=== PATIENT | male | born 1955 | race Caucasian/White ===

== ENCOUNTER 2024-12-28 13:33 | Outpatient (NON) | payer MEDICARE, SELFPAY ==
[2024-12-28 14:11] LABS: Anion Gap 7 mmol/L (4-12); Basophils Absolute Auto 0.04 K/mm3 (0.00-0.10); Basophils Percent Auto 0.5 % (0.0-1.0); Blood Urea Nitrogen 24 mg/dL (9-20); Calcium 9.1 mg/dL (8.4-10.2); Carbon Dioxide 25 mmol/L (22-30); Chloride 104 mmol/L (98-107); Eosinophils Absolute Auto 0.24 K/mm3 (0.02-0.50); Eosinophils Percent Auto 2.9 % (1.0-6.0); Estimated Glomerular Filt Rate 60; Glucose 174 mg/dL (65-110); Hematocrit 35.3 % (37.0-46.0); Hemoglobin 11.7 g/dL (12.4-15.3); Immature Granulocyte Absolute 0.05 K/mm3 (0.00-0.00); Immature Granulocyte Percent A 0.6 % (0.0-0.0); Lymphocytes Absolute Auto 1.15 K/mm3 (1.10-4.50); Mean Corpuscular HGB Conc 33.1 g/dL (32-36); Mean Corpuscular Hemoglobin 27.7 pg (27.0-31.0); Mean Corpuscular Volume 83.5 fL (78.0-102.0); Mean Platelet Volume 8.9 fl (8.7-11.0); Monocytes Absolute Auto 0.76 K/mm3 (0.10-0.90); Monocytes Percent Auto 9.3 % (2.0-11.0); Neutrophils Absolute Auto 5.97 K/mm3 (1.70-7.20); Neutrophils Percent Auto 72.7 % (50.0-70.0); Osmolality Calculated 290 mOsm/kg (285-295); Platelet Count Result 578 K/mm3 (150-420); Potassium 5.2 mmol/L (3.4-5.0); Red Blood Count 4.23 M/mm3 (4.70-6.10); Red Cell Distribution Width 12.7 % (11.6-14.4); Sodium 136 mmol/L (137-145); White Blood Count 8.2 K/mm3 (4.8-10.8)
--- OUTSIDE RECORDS SUMMARY | 2024-12-28 14:17 | XMS_ITS | Clinical Summary ---
Author Organization Unknown Care Team Providers Care Industrial Furnace Fabricator Name Role Phone TAMIR SHARP, FREDI Unavailable Unavailable CARLOS GARCIA, BRIAN Unavailable Unavailable Payers Payer Name Policy Type Policy Number Effective Date Expira tion Date MEDICARE - [place] - PDGM [id number] Problems Condition Name Condition Details Condition Category Status Onset Date Resolution Date Last Treatment Date Treating Clinician Comments OTHER ACUTE OSTEOMYELIT IS, RIGHT ANKLE AND FOOT Active 12-19 00:00: 00 Allergies, Adverse Reactions, Alerts Allergy Name Allergy Type Status Severity Reaction(s) Onset Date Inactive Date Treating Clinician Comments VANCOMYCIN Propensity to adverse reactions Active 12-25 15:46: 09 Immunizations Ordered Immunization Name Filled Immunization Name Date Status Comments Refusal Reason REFUSED FLU, PPV 2024-12-25 00:00:00 Vital Signs Vital Name Observation Time Observation Value Commen ts Temperature 2024-12-25 18:35:00.000 98 [degF] BMI (%) 2024-12-25 15:54:36.000 34 kg/m2 Height 2024-12-25 15:54:26.000 70 [in_us] Pulse 2024-12-25 18:35:00.000 89 /min O2 Saturation (%) 2024-12-25 18:35:00.000 97 % Respirations 2024-12-25 18:35:00.000 18 /min Weight (lbs) 2024-12-25 15:54:36.000 238 [lb_av] Systolic Blood Pressure 2024-12-25 18:35:00.000 148 mm [Hg] Diastolic Blood Pressure 2024-12-25 18:35:00.000 62 mm [Hg] Plan of Treatment Planned Activity Planned Date Details Comments Future Scheduled Test SKILLED NU RSE TO EVALUATE PATIENT, IDENTIFY PRIMARY AND CO-MORBID CONDITIONS CODED PER CODING GUIDELINES, AND DEVELOP PATIENT SPECIFIC PLAN OF CARE THAT INCLUDES PATIENT GOAL FOR HOME HEALTH. [code = SKILLED NURSE TO EVALUATE PATIENT, IDENTIFY PRIMARY AND CO-MORBID CONDITIONS CODED PER CODING GUIDELINES, AND DEVELOP PATIENT SPECIFIC PLAN OF CARE THAT INCLUDES PATIENT GOAL FOR HOME HEALTH.] Future Scheduled Test SKILLED NU RSE TO REVIEW PATIENT MEDICATIONS (PRESCRIPTION/OTC). INSTRUCT PATIENT/CAREGIVER ON ALL MEDICATIONS INCLUDING PURPOSE, WHEN TO TAKE, IMPORTANCE OF MEDICATION ADHERENCE, MONITORING OF EFFECTIVENESS, ADVERSE DRUG REACTIONS, POSSIBLE SIDE EFFECTS, AND WHEN TO NOTIFY AGENCY OR PHYSICIAN/PROVIDER OF ANY CONCERNS. [code = SKILLED NURSE TO REVIEW PATIENT MEDICATIONS (PRESCRIPTION/OTC). INSTRUCT PATIENT/CAREGIVER ON ALL MEDICATIONS INCLUDING PURPOSE, WHEN TO TAKE, IMPORTANCE OF MEDICATION ADHERENCE, MONITORING OF EFFECTIVENESS, ADVERSE DRUG REACTIONS, POSSIBLE SIDE EFFECTS, AND WHEN TO NOTIFY AGENCY OR PHYSICIAN/PROVIDER OF ANY CONCERNS.] Future Scheduled Test PATIENT WASHBURN S A RISK OF HOSPITALIZATION AND ED USE. SKILLED NURSE TO ESTABLISH SUPPORT MEASURES TO MINIMIZE RISK OF HOSPITALIZATION AND ED USE, AND INSTRUCT PATIENT/CAREGIVER ON METHODS TO REDUCE AVOIDABLE HOSPITALIZATION AND ED USE. [code = PATIENT HAS A RISK OF HOSPITALIZATION AND ED USE. SKILLED NURSE TO ESTABLISH SUPPORT MEASURES TO MINIMIZE RISK OF HOSPITALIZATION AND ED USE, AND INSTRUCT PATIENT/CAREGIVER ON METHODS TO REDUCE AVOIDABLE HOSPITALIZATION AND ED USE.] Future Scheduled Test SKILLED NU RSE TO PROVIDE INSTRUCTION TO PATIENT/CAREGIVER RELATED TO DISCHARGE PLANNING. [code = SKILLED NURSE TO PROVIDE INSTRUCTION TO PATIENT/CAREGIVER RELATED TO DISCHARGE PLANNING.] Future Scheduled Test SKILLED NU RSE TO PERFORM ENVIRONMENTAL SAFETY RISK ASSESSMENT AND FALL RISK ASSESSMENT AND PROVIDE INSTRUCTION TO IMPLEMENT ENVIRONMENTAL SAFETY AND FALL PREVENTION STRATEGIES THROUGHOUT THE CERTIFICATION PERIOD. SKILLED NURSE WILL MAINTAIN SITUATIONAL AWARENESS AND WILL NOTIFY CLINICAL NETWORK SUPPORT SPECIALIST AND PHYSICIAN/PROVIDER WITH ANY CHANGE IN CONDITION. [code = SKILLED NURSE TO PERFORM ENVIRONMENTAL SAFETY RISK ASSESSMENT AND FALL RISK ASSESSMENT AND PROVIDE INSTRUCTION TO IMPLEMENT ENVIRONMENTAL SAFETY AND FALL PREVENTION STRATEGIES THROUGHOUT THE CERTIFICATION PERIOD. SKILLED NURSE WILL MAINTAIN SITUATIONAL AWARENESS AND WILL NOTIFY CLINICAL NETWORK SUPPORT SPECIALIST AND PHYSICIAN/PROVIDER WITH ANY CHANGE IN CONDITION.] Future Scheduled Test SKILLED NU RSE FOR OBSERVATION AND ASSESSMENT OF PATIENTS PAIN LEVEL AND EFFECTIVENESS OF PAIN MANAGEMENT REGIMEN. SKILLED NURSE TO INSTRUCT PATIENT/CAREGIVER REGARDING PHARMACOLOGIC AND NON-PHARMACOLOGIC PAIN CONTROL MEASURES. SKILLED NURSE TO REPORT TO PHYSICIAN IF PAIN LEVEL IS OUTSIDE OF ESTABLISHED PARAMETERS. [code = SKILLED NURSE FOR OBSERVATION AND ASSESSMENT OF PATIENTS PAIN LEVEL AND EFFECTIVENESS OF PAIN MANAGEMENT REGIMEN. SKILLED NURSE TO INSTRUCT PATIENT/CAREGIVER REGARDING PHARMACOLOGIC AND NON-PHARMACOLOGIC PAIN CONTROL MEASURES. SKILLED NURSE TO REPORT TO PHYSICIAN IF PAIN LEVEL IS OUTSIDE OF ESTABLISHED PARAMETERS.] Future Scheduled Test SKILLED NU RSE TO ASSESS PATIENT'S SKIN INTEGRITY AND INSTRUCT PATIENT/CAREGIVER ON MEASURES TO PREVENT PRESSURE ULCERS. [code = SKILLED NURSE TO ASSESS PATIENT'S SKIN INTEGRITY AND INSTRUCT PATIENT/CAREGIVER ON MEASURES TO PREVENT PRESSURE ULCERS.] Future Scheduled Test SN TO INST RUCT PATIENT/CAREGIVER ON DIABETES MANAGEMENT UTILIZING THE [facility] SPECIALTY PROGRAM. [code = SN TO INSTRUCT PATIENT/CAREGIVER ON DIABETES MANAGEMENT UTILIZING THE [facility] SPECIALTY PROGRAM.] Future Scheduled Test SN TO INST RUCT PATIENT/CAREGIVER ON METHODS TO MANAGE WOUNDS AND MAINTAIN HEALTHY SKIN UTILIZING THE [facility] PRO[facility]. [code = SN TO INSTRUCT PATIENT/CAREGIVER ON METHODS TO MANAGE WOUNDS AND MAINTAIN HEALTHY SKIN UTILIZING THE [facility].] Future Scheduled Test NEED FOR S KILLED TEACHING AND INTERVENTION RELATED TO DIABETIC FOOT WOUNDS TO BOTH LEFT AND RIGHT FOOTAS WELL INCISION ON RIGHT FOOT. SKILLED NURSE OR TRAINED PATIENT/CAREGIVER TO PERFORM WOUND CARE USING ASEPTIC TECHNIQUE TO APPLY BETADINE TO BILATERAL FOOT WOUNDS AND INCISION LINE, AND COVER WITH DRY DRESSING(4 4 OR ABD PAD), WRAP WITH ROLLED GAUZE, THEN APPLY AN ERICH BANDAGE DAILY AND PRN IF SOILED OR DISLODGED. 1-2 PRN SKILLED NURSE VISITS FOR WOUND CARE DUE TO COMPLICATIONS. SKILLED NURSE TO OBTAIN WOUND CULTURE PRN S/S OF INFECTION. WOUND CARE WILL BE PERFORMED BY TRAINED CAREGIVER ON DAYS WHEN SKILLED NURSE IS NOT SCHEDULED FOR A VISIT. DISCONTINUE WOUND CARE/SUPPLIES ONCE WOUND IS HEALED. [code = NEED FOR SKILLED TEACHING AND INTERVENTION RELATED TO DIABETIC FOOT WOUNDS TO BOTH LEFT AND RIGHT FOOTAS WELL INCISION ON RIGHT FOOT. SKILLED NURSE OR TRAINED PATIENT/CAREGIVER TO PERFORM WOUND CARE USING ASEPTIC TECHNIQUE TO APPLY BETADINE TO BILATERAL FOOT WOUNDS AND INCISION LINE, AND COVER WITH DRY DRESSING(4 4 OR ABD PAD), WRAP WITH ROLLED GAUZE, THEN APPLY AN ERICH BANDAGE DAILY AND PRN IF SOILED OR DISLODGED. 1-2 PRN SKILLED NURSE VISITS FOR WOUND CARE DUE TO COMPLICATIONS. SKILLED NURSE TO OBTAIN WOUND CULTURE PRN S/S OF INFECTION. WOUND CARE WILL BE PERFORMED BY TRAINED CAREGIVER ON DAYS WHEN SKILLED NURSE IS NOT SCHEDULED FOR A VISIT. DISCONTINUE WOUND CARE/SUPPLIES ONCE WOUND IS HEALED.] Future Scheduled Test SKILLED NU RSE FOR O/A AND TEACHING OF DIABETIC MANAGEMENT INCLUDING BLOOD SUGAR MONITORING/USE OF GLUCOMETER, DIABETIC DIET, LOWER EXTREMITY SKIN INSPECTION, PROPER SKIN/FOOT CARE, AND SIGNS AND SYMPTOMS HYPO/HYPERGLYCEMIA TO REPORT. [code = SKILLED NURSE FOR O/A AND TEACHING OF DIABETIC MANAGEMENT INCLUDING BLOOD SUGAR MONITORING/USE OF GLUCOMETER, DIABETIC DIET, LOWER EXTREMITY SKIN INSPECTION, PROPER SKIN/FOOT CARE, AND SIGNS AND SYMPTOMS HYPO/HYPERGLYCEMIA TO REPORT.] Future Scheduled Test SKILLED NU RSE TO OBTAIN BLOOD SUGAR PRN FOR SIGNS AND SYMPTOMS OF HYPO/HYPERGLYCEMIA. IF OBTAINED BY PATIENT/CAREGIVER PRIOR TO VISIT AND PATIENT IS NOT SYMPTOMATIC, SKILLED NURSE TO RECORD READING FROM PATIENT LOG. [code = SKILLED NURSE TO OBTAIN BLOOD SUGAR PRN FOR SIGNS AND SYMPTOMS OF HYPO/HYPERGLYCEMIA. IF OBTAINED BY PATIENT/CAREGIVER PRIOR TO VISIT AND PATIENT IS NOT SYMPTOMATIC, SKILLED NURSE TO RECORD READING FROM PATIENT LOG.] Future Scheduled Test SKILLED NU RSE FOR O/A AND TEACHING ON IV SITE CARE, INFUSION PROCEDURE, SIGNS AND SYMPTOMS OF INFECTION/COMPLICATIONS. SKILLED NURSE TO OBTAIN IV ACCESS TO CENTRAL LINE VIA PICC TO LEFT UPPER ARM. SKILLED NURSE OR TRAINED PATIENT/CAREGIVER TO ADMINISTER IV THERAPY OF CEFTRIAXONE, WITH A SASH STYLE FLUSH AND ADMINISTRATION, 2000MG, FOR 40 DOSES, AND DAILY. SKILLED NURSE TO CHANGE DRESSING USING STERILE TECHNIQUE WEEKLY AND PRN FOR SOILED OR LOOSE DRESSING. [code = SKILLED NURSE FOR O/A AND TEACHING ON IV SITE CARE, INFUSION PROCEDURE, SIGNS AND SYMPTOMS OF INFECTION/COMPLICATIONS. SKILLED NURSE TO OBTAIN IV ACCESS TO CENTRAL LINE VIA PICC TO LEFT UPPER ARM. SKILLED NURSE OR TRAINED PATIENT/CAREGIVER TO ADMINISTER IV THERAPY OF CEFTRIAXONE, WITH A SASH STYLE FLUSH AND ADMINISTRATION, 2000MG, FOR 40 DOSES, AND DAILY. SKILLED NURSE TO CHANGE DRESSING USING STERILE TECHNIQUE WEEKLY AND PRN FOR SOILED OR LOOSE DRESSING.] Future Scheduled Test SKILLED NU RSE TO OBTAIN BLOOD SPECIMEN VIA PICC LINE OR VENIPUNCTURE, FOR LABS BMP, ESR, CBC WITH DIFFERENTIAL WEEKLY, OBTAIN LAB RESULTS AND REPORT TO PHYSICIANFREDI AT [phone] [facility] AT [phone]. [code = SKILLED NURSE TO OBTAIN BLOOD SPECIMEN VIA PICC LINE OR VENIPUNCTURE, FOR LABS BMP, ESR, CBC WITH DIFFERENTIAL WEEKLY, OBTAIN LAB RESULTS AND REPORT TO PHYSICIANFREDI AT [phone] [facility] AT [phone].] Future Scheduled Test [facility] MAY ACCEPT ORDERS FROM THE FOLLOWING PHYSICIANS: ANY ON-CALL OR ATTENDING [code = HOME HEALTH AGENCY MAY ACCEPT ORDERS FROM THE FOLLOWING PHYSICIANS: ANY ON-CALL OR ATTENDING] Goal Patient Goal - B EING ABLE TO WEAR NORMAL SHOES Goal Provider Goal - A PLAN OF CARE WILL BE ESTABLISHED THAT MEETS PATIENT'S CARE HOME NEEDS AND INCLUDES PATIENT GOAL FOR HOME HEALTH. Goal Provider Goal - PATIENT/CAREGIVER WILL VERBALIZE UNDERSTANDING OF EDUCATION PROVIDED ON MEDICATIONS BY THE END OF THE CERTIFICATION PERIOD. Goal Provider Goal - PATIENT WILL HAVE SUPPORT MEASURES ESTABLISHED TO PREVENT HOSPITALIZATION AND ED USE AND PATIENT/CAREGIVER WILL VERBALIZE/DEMONSTRATE METHODS TO REDUCE AVOIDABLE HOSPITALIZATION AND ED USE BY END OF EPISODE. Goal Provider Goal - PATIENT/CAREGIVER WILL VERBALIZE UNDERSTANDING OF DISCHARGE PLANNING INSTRUCTIONS BY DATE OF DISCHARGE. Goal Provider Goal - PATIENT/CAREGIVER WILL VERBALIZE/DEMONSTRATE EFFECTIVE ENVIRONMENTAL SAFETY AND FALL PREVENTION STRATEGIES, WILL REMAIN SAFE IN THE COMMUNITY, AND WILL BE FREE OF DANGER TO SELF AND OTHERS THROUGHOUT THE CERTIFICATION PERIOD. Goal Provider Goal - PATIENT/CAREGIVER WILL DEMONSTRATE UNDERSTANDING OF PHARMACOLOGIC AND NONPHARMACOLOGIC PAIN CONTROL MEASURES AND PATIENT WILL HAVE IMPROVEMENT IN PAIN INTERFERING WITH ACTIVITY EVIDENCED BY PAIN AT A LEVEL THAT IS ACCEPTABLE TO THE PATIENT AND PAIN LEVEL WITHIN ESTABLISHED PARAMETERS BY END OF CERTIFICATION PERIOD. Goal Provider Goal - PATIENT/CAREGIVER WILL VERBALIZE UNDERSTANDING OF PRESSURE ULCER PREVENTION BY END OF THE EPISODE. Goal Provider Goal - PATIENT/CAREGIVER WILL DEMONSTRATE MANAGEMENT OF DIABETES A RESULT OF PARTICIPATION IN [facility] PRO[facility]. Goal Provider Goal - PATIENT/CAREGIVER WILL DEMONSTRATE METHODS TO MANAGE WOUNDS AND MAINTAIN HEALTHY SKIN A RESULT OF PARTICIPATION IN [facility]. Goal Provider Goal - WOUND CARE WILL BE COMPLETED AND PATIENT WILL HAVE IMPROVED WOUND STATUS EVIDENCED BY NO SIGNS AND SYMPTOMS OF INFECTION, DECREASED WOUND SIZE, AND/OR NO COMPLICATIONS BY THE END OF THE CERTIFICATION PERIOD. Goal Provider Goal - PATIENT/CAREGIVER WILL VERBALIZE/DEMONSTRATE KNOWLEDGE OF DIABETIC MANAGEMENT. CHANGES IN DIABETIC STATUS WILL BE IDENTIFIED AND REPORTED TO PHYSICIAN FOR PROMPT INTERVENTION THROUGHOUT THE CERTIFICATION PERIOD. Goal Provider Goal - BLOOD SUGAR READING WILL BE OBTAINED ORDERED THROUGHOUT CERTIFICATION PERIOD. Goal Provider Goal - PATIENT WILL VERBALIZE/DEMONSTRATE TOLERANCE TO CENTRAL LINE ACCESS PROCEDURE, IV MEDICATION ADMINISTRATION, AND DRESSING CHANGES ORDERED THROUGH CERTIFICATION PERIOD. Goal Provider Goal - SKILLED NURSE TO PERFORM LAB PROCEDURE AND REPORT RESULTS TO PHYSICIAN. Goal Provider Goal - ADDITIONAL ORDERS WILL BE RECEIVED FROM ALTERNATE PHYSICIAN IN A TIMELY MANNER THROUGHOUT THE CERTIFICATION PERIOD. Progress Notes Progress Notes <paragraph>[Visit Date: 2024 by SARA DARIELA RN]:</paragraph><paragraph>PATIENT IS SEEN TODAY FOR A START OF CARE VISIT, PATIENT IS A 69-YEAR-OLD MALE CLIENT WHO HAD RECENTLY BEEN HOSPITALIZED FOR OTHER ACUTE OSTEOMYELITIS OF THE RIGHT ANKLE AND FOOT EXACERBATION, PAST MEDICAL HISTORIES INCLUDE HYPERTENSION, DIABETES MELLITUS TYPE 2, PULMONARY VASCULAR DISEASE, DYSLIPIDEMIA AND PERIPHERAL NEUROPATHY, RIGHT FOOT CELLULITIS, DIABETIC FOOT WOUNDS. PATIENT IS ALERT AND ORIENTED X3 WITH SOME FORGETFULNESS, WELL-GROOMED PLEASANT AND COOPERATIVE MALE PATIENT THROUGHOUT THE ENTIRE VISIT. PATIENT LIVES ALONE BUT HAS A GOOD SUPPORT SYSTEM WITH THE HELP OF HIS CHILDREN FOR HIS HAD RECENTLY . AT TODAY'S VISIT WE REVIEWED THE RONAN COHEN BUCKLING, PATIENT'S RIGHTS AND RESPONSIBILITIES, CALL US FIRST, PATIENT SATISFACTION, EMERGENCY PREPAREDNESS ACTION PLANS AND PATIENT INSTRUCTION. ALL CONSENTS WERE SIGNED BY PATIENT. VITAL SIGNS WERE OBTAINED AND WITHIN NORMAL LIMITS, HEART RATE AND RHYTHM WITHIN NORMAL LIMITS, PATIENT DENIES ANY CHEST PAIN, HEART PALPITATIONS OR DIZZINESS AT THIS VISIT. BILATERAL LUNG SOUNDS ARE CLEAR TO ALL AGUILAR, ABDOMEN IS SOFT AND NONDISTENDED, PATIENT DENIES ANY DIARRHEA OR CONSTIPATION WITH LAST BOWEL MOVEMENT BEING YESTERDAY. PATIENT VOICES SHE IS URINATING WITHOUT ANY DIFFICULTIES. IN GENERALIZED EDEMA TO BOTH LEGS BILATERALLY FROM THE KNEES TO THE TOES. SKIN ASSESSMENT COMPLETED AND PATIENT NOTED TO BOTH DIABETIC FOOT ULCERS TO BOTH THE RIGHT AND LEFT FOOT. THESE WERE DOCUMENTED IN [facility] AND [place]. AFTER THE ASSESSMENT THE SKILLED NURSE TO SEE THE PATIENT ONE TIME A WEEK FOR 9 WEEKS FOR EDUCATION, ASSESSMENT, LABS, WOUND CARE, PICC LINE DRESSING CHANGES AND IV THERAPY. WE REVIEWED THE CALENDAR FOR THE NEXT SCHEDULED VISIT, AND TO CALL RONAN COHEN FIRST WITH ANY QUESTIONS, CONCERNS OR CHANGES PATIENT MAY HAVE. PATIENT IS AGREEABLE TO THE PLAN OF CARE. MEDICATION PROFILE REVIEWED AND NO ISSUES NOTED AT THIS VISIT. AT TODAY'S VISIT WILL UTILIZE THE WOUND AND DIABETIC ACTION PLANS FOR EDUCATION WITH THIS FOR VISIT FOCUSING ON EVERYDAY BOX. PATIENT WAS RECEPTIVE TO EDUCATION AND ABLE TO PROVIDE TEACH BACK OF EDUCATED PROVIDED. PATIENT WAS ALSO ABLE TO DO RETURN DEMONSTRATION WITH TEACHING ON IV THERAPY IN PICC LINE FLUSHING. THIS ASSOCIATE BROKER WALKED PATIENT THROUGH THE DOSING, AND ADMINISTRATION OF THE IV THERAPY THROUGH THE PICC LINE WHILE AT THIS VISIT, PATIENT HAD PREVIOUSLY HAD A PICC LINE THE COUPLE YEARS AGO AND WAS ALREADY FAMILIAR WITH THE THERAPY. PATIENT WAS ABLE TO NOT ONLY PROVIDE THE CARE BUT TO VERBALIZE EVERYTHING HE WAS DOING PRIOR TO DOING IT. PATIENT DOES HAVE A SINGLE LUMEN PICC LINE THAT IS PATENT AND FLUSHING EASILY TO HIS LEFT UPPER ARM. DUE TO IT BEING LATE ON FRIDAY EVENING AND DOCTORS OFFICE IS CLOSED ASSOCIATE BROKER WILL CONTACT DR. FREDI GARNETT OFFICE ON FRIDAY WITH PLAN OF CARE.</paragraph> Encounters Start Date/Time End Date/Time Encounter Type Admission Type Attending [facility] Care Department Encounter ID Discharge Date Discharge Status Discharge Condition Discharge Reason Percent Goals Met 2024-12-25 00:00:00 2025-02-22 00:00:00 Outpatient NEW ADMISSION BRIAN GONZALEZ [facility] [id number] 100.00
--- OUTSIDE RECORDS SUMMARY | 2024-12-28 14:17 | XMS_ITS | Continuity of Care Document ---
Author Organization [facility] Address [address] [place] [address] Phone Care Team Providers Care Skylights Assembler Name Role Phone Moisés SHARP MD, Braden Unavailable Unavailable Procedures Procedure Date Office/outpatient visit,[facility], [facility] 2007 Disability Form Disability Form Postop followup visit Postop followup visit Shoulder manipul w/anesth/fixation Postop followup visit Postop followup visit X-ray exam of shoulder, one view 2007 Arthscpy shldr decompression Arthscpy shldr dstl claviculectomy Repair ruptured rotator cuff, chron Office/outpatient visit,[facility] 2007 Advance Directives Directive Yes / No Effective Date File Name No Information Encounters Encounter Description Practice Location Reason(s) For Visit Diagnoses Date Provider Providers Copied on Encounter Office/outpat ient visit,[place], [facility], [address] [place] [address], [id number], tel:[phone] [facility] No Information 8 Moisés Feliciano. [address] [place] [address], [place] [address], [place], [place], [id number] , [place]. tel:[phone] Referring Provider: Demetri Judge, [address] [place] [address] [address], [place], [address]. tel:[phone] [facility], [address] [place] [address], [id number], [place] tel:[phone] [facility] No Information 8 Moisés Feliciano. [address], [address], [place], [place], [id number] , [place]. tel: [phone] [facility], [address], [place], [id number], [place] tel:[phone] [facility] No Information 8 Moisés Feliciano. [address], [address], [place], [place], [id number] , [place]. tel: [phone] [facility], [address] [place] [address], [place], [place], [id number], [place] tel:[phone] [facility] No Information 8 Moisés Feliciano. [address], [facility] [address], [place], [place], [id number] , [place]. tel: [phone] Referring Provider: Demetri Judge, [address], [place], [facility]. tel:[phone] [facility], [address], [id number], [place] tel:[phone] [facility] No Information 8 Moisés Feliciano. [address], [address], [place], [place], [id number] , [place]. tel:[phone] Referring Provider: Demetri Judge, [address], [address]. tel:[phone] [facility], [address], [id number], [place] tel:[phone] [facility] No Information 8 Moisés Feliciano. [address], [address], [place], [place], [id number] , [place]. tel:[phone] Referring Provider: Demetri Judge, [address], [address]. tel:[phone] [facility], [address] [place] [address], [id number], [place] tel:[phone] [facility] No Information 8 Moisés Feliciano. [address] [address], [place], [place], [id number] , [place]. tel: [phone] Referring Provider: Demetri Judge, [address], [place], [facility]. tel:[phone] [facility], [address] [place] [address], [id number], tel:[phone] [facility] No Information 8 Moisés Feliciano. [address] [place] [address], [place], [place], [id number] , [place]. tel: [phone] Referring Provider: Demetri Judge, [address], [place], [facility]. tel:[phone] [facility], [address] [place] [address], [id number], [place] tel:[phone] [facility] No Information 8 Moisés Feliciano. [address] [place] [address], [place], [place], [id number] , [place]. tel:[phone] Referring Provider: Demetri Judge, [address], [place], [facility]. tel:[phone] Office/outpat ient visit,[facility], [facility], [address] [place] [address], [id number], tel:[phone] [facility] No Information 8 Moisés Feliciano. [address] [place] [address], [place], [place], [id number] , [place]. tel:[phone] Referring Provider: Demetri Judge, [address], [place], [facility]. tel:[phone] Family History Family Member Type Diagnosis Age At Onset No Information Payers Payer name Insurance type Covered democrat ID Christelle llanos(s) [facility] CI [id number] Social History Type Description Quantity Date Captured Comments Sex Male Smoking Status No Information Chief Complaint And Reason For Visit No Information Reason For Referral Reason For Referral No Information History Of Present Illness Encounter Date Complaint History Of Prese nt Illness No Information Functional Status Date Functional Assessmen t No Information Instructions Date Instruction Additional Infor mation No Information Assessments Type Assessment Date No Information Patient Care Teams Name Effective Dates (start - stop) Status Members No Information
[2024-12-28 15:07] LABS: Erythrocyte Sedimentation Rate 52 mm/hr (0-20)
== END 2024-12-28 13:34 | disposition home or self-care (01) ==
PROVIDERS: PCP Family Medicine
DX: M86.171 Other acute osteomyelitis, right ankle and foot (principal)
CPT/HCPCS: 36415; 80048; 85025; 85055; 85652